=== PATIENT | female | born 1935 | race Two or more races ===

== ENCOUNTER 2023-08-03 14:20 | Emergency (ER) | payer OTHER ==
[~2023-08-03] VITALS: Ht 157.5 cm; Wt 63.5 kg
[2023-08-03] MEDS ORDERED: ATORVASTATIN CA20 MG (15:42)
[2023-08-03] MEDS ORDERED: CARVEDILOL25 M1 PO (15:43)
[2023-08-03] MEDS ORDERED: SERTRALINE HCL50 MG PO (15:43)
[2023-08-03] MEDS ORDERED: AVAPRO150 MG (15:44)
[2023-08-03 16:57] LABS: HEMATOCRIT 40.9 % (36.0-45.00); MEAN CELL VOLUME 90.3 fL (80.00-100.00); MEAN CORPUSCULAR HEMOGLOBIN 30.9 pg (27.00-32.0); MEAN CORPUSCULAR HGB CONC 34.2 g/dl (32.0-36.0); PLATELET COUNT 180 K/uL (150-450); RED BLOOD COUNT 4.53 M/uL (4.00-6.00); RED CELL DISTRIBUTION WIDTH 13.1 % (11.5-14.5)
[2023-08-03 17:12] LABS: INR 1.04; PARTIAL THROMBOPLASTIN TIME 25.7 SECONDS (22.0-34.0); PROTHROMBIN TIME 10.9 SECONDS (9.0-11.5)
[2023-08-03 17:18] LABS: ALBUMIN 3.8 gm/dL (3.4-5.0); BILIRUBIN TOTAL 0.64 mg/dL (0.3-1.2); CREATININE SERUM 0.74 mg/dL (0.55-1.02); GFR 74.41; GLOBULINA 3.4 G/DL (2.4-3.5); POTASSIUM 3.88 mEq/L (3.5-5.1); TOTAL PROTEIN 7.2 gm/dL (6.4-8.2)
[2023-08-03 19:38] LABS: PH,URINE 5.5 (5.0-8.0); URINE APPEARANCE Turbid; URINE BILIRRUBIN Negative (NEGATIVE); URINE BLOOD Small; URINE COLOR Dark Yellow; URINE GLUCOSE Negative (NEGATIVE); URINE LEUKOCYTE Moderate; URINE NITRATE Negative; URINE PROTEIN 30 (NEGATIVE)
[2023-08-03 19:43] LABS: URINE EPITHELIAL CELLS 42.5 uL (0.0-38.8); URINE RBC 341.6 uL (0.0-20.8); URINE WBC 88.5 uL (0.0-23.2)
[2023-08-03 20:02] LABS: URINE BACTERIA > 9821.5 uL (0.0-1933); URINE CRYSTALS FEW /HPF
== END 2023-08-03 20:34 | disposition home or self-care (01) ==
LOC: ER 14:20
PROVIDERS: General Practice
DX: S01.81XA Laceration without foreign body of other part of head, initial encounter (principal); S20.229A Contusion of unspecified back wall of thorax, initial encounter; W19.XXXA Unspecified fall, initial encounter; Y93.9 Activity, unspecified; Y92.89 Other specified places as the place of occurrence of the external cause; Y99.9 Unspecified external cause status; Z91.013 Allergy to seafood; I10 Essential (primary) hypertension